=== PATIENT | male | born 1980 | race Caucasian/White ===

== ENCOUNTER 2016-07-02 12:36 | Emergency (ER) | payer SELFPAY ==
[2016-07-02] MEDS ORDERED: SODIUM CHLORIDE 0.9% 1,000 ML IV STA (12:58)
[2016-07-02] MEDS ORDERED: ONDANSETRON 4 MG/2 ML VIAL IVP STA (12:58)
[2016-07-02] MEDS ORDERED: HYDROmorphone 1 MG/ML 1 ML SYRINGE IVP STA (12:58)
[2016-07-02] MEDS ORDERED: FAMOTIDINE 20 MG/2 ML VIAL IV STA (12:58)
--- NOTE | 2016-07-02 13:01 | ED ---
General Adult HPI - General Chief complaint: Abdominal Pain Stated complaint: Abd Pain Time Seen by Provider: 07/02/16 12:51 Source: patient, RN notes reviewed Mode of arrival: ambulatory Limitations: no limitations - History of Present Illness Initial comments: Patient 35-year-old male who presents emergency room today with a chief complaint of abdominal pain that began last night. Does admit to pain in epigastric right upper quadrants. Patient does admit feeling nauseated with one episode of vomiting. Patient denies any other complaints associated symptoms. Patient denies any recent fever, chills, shortness of breath, chest pain, back pain, numbness or tingling, dysuria or hematuria, constipation or diarrhea, headaches or visual changes, or any other complaints. - Related Data Previous Rx's Medication Instructions Recorded Cephalexin [Keflex] 500 mg PO Q8HR #21 cap 03/14/16 HYDROcodone/APAP 5-325MG [[place] 1 tab PO Q6HR PRN #12 tab 03/14/16 5-325] Ibuprofen [Motrin] 800 mg PO Q8HR PRN #21 tab 03/14/16 Ondansetron HCl [Zofran] 4 mg PO Q8HR PRN #12 tab 03/14/16 Loperamide [Imodium] 2 mg PO DIRECTED #20 capsule 07/02/16 Ondansetron Odt [Zofran ODT] 4 mg PO Q8HR PRN #20 tab 07/02/16 Allergies Allergy/AdvReac Type Severity Reaction Status Date / Time No Known Allergies Allergy Verified 03/14/16 20:55 Review of Systems ROS Statement: Those systems with pertinent positive or pertinent negative responses have been documented in the HPI. ROS Other: All systems not noted in ROS Statement are negative. Past Medical History Past Medical History: No Reported History History of Any Multi-Drug Resistant Organisms: None Reported Past Surgical History: No Surgical Hx Reported Additional Past Surgical History / Comment(s): hand surgery Past Psychological History: ADD/ADHD Smoking Status: Current every day smoker Past Alcohol Use History: Occasional Past Drug Use History: Marijuana General Exam - General Exam Comments Initial Comments: General: The patient is awake and alert, in no distress, and does not appear acutely ill. Eye: Pupils are equal, round and reactive to light, extra-ocular movements are intact. No nystagmus. There is normal conjunctiva bilaterally. No signs of icterus. Ears, nose, mouth and throat: There are moist mucous membranes and no oral lesions. Neck: The neck is supple, there is no tenderness or JVD. Cardiovascular: There is a regular rate and rhythm. No murmur, rub or gallop is appreciated. Respiratory: Lungs are clear to auscultation, respirations are non-labored, breath sounds are equal. No wheezes, stridor, rales, or rhonchi. Gastrointestinal: Normal exam. Normal bowel sounds. Abdomen soft on palpation. Patient does have tenderness in the right upper quadrant and epigastric. No rebound tenderness. No Guarding. No CVA tenderness. Musculoskeletal: Normal ROM, no tenderness. Strength 5/5. Sensation intact. Pulses equal bilaterally 2+. Neurological: A&O x 3. CN II-XII intact, There are no obvious motor or sensory deficits. Coordination appears grossly intact. Speech is normal. Skin: Skin is warm and dry and no rashes or lesions are noted. Psychiatric: Cooperative, appropriate mood & affect, normal judgment. Limitations: no limitations Course Vital Signs 07/02/16 12:38 Temperature 99.2 F Pulse Rate 75 Respiratory 20 Rate Blood Pressure 137/93 O2 Sat by Pulse 100 Oximetry Medical Decision Making - Medical Decision Making Patient labs reviewed and are unremarkable. Unable to obtain urine sample here. Patient states he has no difficulties urinating. States that kidney stone in the past does not feel like that. He does admit to some diarrhea over the last few days. Patient admits to nausea. X-ray unremarkable. Ultrasound shows no evidence of cholecystitis. No gallstones. Results were discussed with the patient. We discharged home with nausea medication advised to use Imodium for any diarrhea. Advised with family doctor return here to emergency room if any symptoms increase or worsen or for any concerns. - Lab Data Result diagrams: 07/02/16 13:05 07/02/16 13:05 Lab Results 07/02/16 07/02/16 Range/Units 13:05 13:05 WBC 7.7 (3.8-10.6) k/uL RBC 5.44 (4.30-5.90) m/uL Hgb 17.3 (13.0-17.5) gm/dL Hct 51.8 (39.0-53.0) % MCV 95.2 (80.0-100.0) fL MCH 31.9 (25.0-35.0) pg MCHC 33.5 (31.0-37.0) g/dL RDW 13.4 (11.5-15.5) % Plt Count 245 (150-450) k/uL Neutrophils % 82 % Lymphocytes % 10 % Monocytes % 5 % Eosinophils % 0 % Basophils % 0 % Neutrophils # 6.3 (1.3-7.7) k/uL Lymphocytes # 0.8 L (1.0-4.8) k/uL Monocytes # 0.4 (0-1.0) k/uL Eosinophils # 0.0 (0-0.7) k/uL Basophils # 0.0 (0-0.2) k/uL Sodium 144 (137-145) mmol/L Potassium 3.9 (3.5-5.1) mmol/L Chloride 104 (98-107) mmol/L Carbon Dioxide 27 (22-30) mmol/L Anion Gap 13 mmol/L BUN 16 (9-20) mg/dL Creatinine 0.82 (0.66-1.25) mg/dL Est GFR (MDRD) Af Amer >60 (>60 ml/min/1.73 sqM) Est GFR (MDRD) Non-Af >60 (>60 ml/min/1.73 sqM) Glucose 123 H (74-99) mg/dL Calcium 10.0 (8.4-10.2) mg/dL Total Bilirubin 0.6 (0.2-1.3) mg/dL AST 25 (17-59) U/L ALT 28 (21-72) U/L Alkaline Phosphatase 63 (38-126) U/L Total Protein 7.8 (6.3-8.2) g/dL Albumin 4.7 (3.5-5.0) g/dL Amylase 79 (30-110) U/L Lipase 105 (23-300) U/L Disposition Clinical Impression: Nausea vomiting and diarrhea Disposition: HOME SELF-CARE Condition: Good Instructions: Gastroenteritis (ED) Additional Instructions: Please use medication as discussed. Please follow-up with family doctor in the next 2 days of symptoms have not improved. Please return to emergency room if the symptoms increase or worsen or for any other concerns. Prescriptions: Loperamide [Imodium] 2 mg PO DIRECTED #20 capsule Ondansetron Odt [Zofran ODT] 4 mg PO Q8HR PRN #20 tab PRN Reason: Nausea Referrals: None,Stated [Primary Care Provider] - 1-2 days Sami Grey MD [REFERRING] - 1-2 days Time of Disposition: 14:22
[2016-07-02 13:25] LABS: Basophils % (A) 0 %; CH 33.3; CHCM 35.1; Eosinophils % (A) 0 %; HCT 51.8 % (39.0-53.0); HDW 2.67; HGB 17.3 gm/dL (13.0-17.5); Luc # (Auto) 0.17; Luc % (Auto) 2; Lymphocytes # (A) 0.8 k/uL (1.0-4.8); Lymphocytes % (A) 10 %; MCH 31.9 pg (25.0-35.0); MCHC 33.5 g/dL (31.0-37.0); MCV 95.2 fL (80.0-100.0); Mean Platelet Volume 6.9; Monocytes # (A) 0.4 k/uL (0-1.0); Monocytes % (A) 5 %; Neutrophils # (A) 6.3 k/uL (1.3-7.7); Neutrophils % (A) 82 %; RBC 5.44 m/uL (4.30-5.90); RDW 13.4 % (11.5-15.5); WBC 7.7 k/uL (3.8-10.6); WBC (Perox) 7.98
--- NOTE | 2016-07-02 13:27 | XR ---
EXAMINATION TYPE: XR KUB DATE OF EXAM: 07/02/2016 1:22 PM COMPARISON: NONE INDICATION: Abdomen pain TECHNIQUE: Single view abdomen FINDINGS: There is a normal bowel gas pattern. Psoas margins are normal. No organomegaly is present. IMPRESSION: 1. Unremarkable Abdomen
[2016-07-02 13:37] LABS: ALT 28 U/L (21-72); AST 25 U/L (17-59); Alkaline Phosphatase 63 U/L (38-126); Amylase 79 U/L (30-110); Anion Gap 13 mmol/L; Blood Urea Nitrogen 16 mg/dL (9-20); Carbon Dioxide 27 mmol/L (22-30); Chloride 104 mmol/L (98-107); Glucose 123 mg/dL (74-99); Non-African American GFR(MDRD) >60 (>60 ml/min/1.73 sqM); Potassium 3.9 mmol/L (3.5-5.1); Sodium 144 mmol/L (137-145); Total Bilirubin 0.6 mg/dL (0.2-1.3); Total Protein 7.8 g/dL (6.3-8.2)
--- NOTE | 2016-07-02 14:08 | US ---
EXAMINATION TYPE: US abdomen limited DATE OF EXAM: 07/02/2016 1:51 PM COMPARISON: NONE CLINICAL HISTORY: Pain. EXAM MEASUREMENTS: Liver Length: 16.6 cm Gallbladder Wall: 0.3 cm CBD: 0.3 cm Right Kidney: 10.5 x 4.2 x 4.6 cm TECHNOLOGIST IMPRESSION: Limited due to patient moving and unable to hold breath well due to pain du ring examination. Pancreas: Obscured by bowel gas, portions visualized appear wnl Liver: wnl Gallbladder: wnl Evidence for sonographic Garza's sign: No, entire RUQ is tender CBD: wnl Right Kidney: wnl IMPRESSION: 1. Normal right upper quadrant abdomen ultrasound
[2016-07-02 14:24] VITALS: BP 112/73; PULSE 70; RESP 16; TEMP 98
== END 2016-07-02 14:36 | disposition home or self-care (01) ==
LOC: EC 12:36
DX: K52.9 Noninfective gastroenteritis and colitis, unspecified (principal); F17.200 Nicotine dependence, unspecified, uncomplicated
CPT/HCPCS: 99284; 96374; 96375 ×2; 96361; 36415; 80053; 82150; 83690; 85025; 74000; 76705; J2405; J1170

== ENCOUNTER 2017-07-20 11:15 | Emergency (ER) | payer OTHER ==
[2017-07-20] MEDS ORDERED: ACETAMINOPHEN TAB 500 MG TAB PO STA (11:57)
[2017-07-20] MEDS ORDERED: IBUPROFEN 600 MG TAB PO STA (11:57)
--- NOTE | 2017-07-20 12:17 | ED ---
General Adult HPI - General Chief complaint: Fever Stated complaint: exposed to mennengitis, headache and spine pain Time Seen by Provider: 07/20/17 11:47 Source: patient, RN notes reviewed Mode of arrival: ambulatory Limitations: no limitations - History of Present Illness Initial comments: 36-year-old male presents for cough and body aches and fever. He states he's been sick for the last day or so. Patient states she is having some sputum production with the cough. He denies any nausea vomiting. He states that he is concerned because this child was sick over the weekend in the hospital for possible meningitis and now he is getting ill. Patient denies any recent shortness of breath, chest pain, back pain, abdominal pain, nausea vomiting, numbness or tingling, dysuria or hematuria, constipation or diarrhea, headaches or visual changes, or any other current symptoms. - Related Data Previous Rx's Medication Instructions Recorded Oseltamivir [Tamiflu] 75 mg PO Q12HR #10 cap 07/20/17 Allergies Allergy/AdvReac Type Severity Reaction Status Date / Time No Known Allergies Allergy Verified 07/20/17 12:03 Review of Systems ROS Statement: Those systems with pertinent positive or pertinent negative responses have been documented in the HPI. ROS Other: All systems not noted in ROS Statement are negative. Past Medical History Past Medical History: No Reported History History of Any Multi-Drug Resistant Organisms: None Reported Past Surgical History: No Surgical Hx Reported Additional Past Surgical History / Comment(s): hand surgery Past Psychological History: ADD/ADHD Smoking Status: Current every day smoker Past Alcohol Use History: Occasional Past Drug Use History: Marijuana General Exam - General Exam Comments Initial Comments: General exam: Alert, active, comfortable in no apparent distress Head: Normocephalic Eyes: Normal reaction of pupils, equal size, normal range of extraocular motion Ears: normal external ear canals, pink tympanic membranes with normal cone of light Nose: clear with pink turbinates Throat: no erythema or exudates with normal sized tonsils Neck: no masses, no nuchal rigidity Chest: no chest wall deformity Lungs: equal air entry with no crackles or wheeze CVS: S1 and S2 normal with no audible mumurs, regular rhythm Abdomen: no hepatosplenomegaly, normal bowel sounds, no guarding or rigidity Spine: no scoliosis or deformity Skin: no rashes Neurological: No focal deficits, tone is normal in all 4 extremities Limitations: no limitations Course Vital Signs 07/20/17 07/20/17 07/20/17 11:32 11:47 12:32 Temperature 100.8 F H Pulse Rate 106 H 92 Respiratory 18 19 19 Rate Blood Pressure 105/79 110/57 O2 Sat by Pulse 96 98 Oximetry Medical Decision Making - Medical Decision Making 36-year-old male presents for fever. At this time patient is flu B+. We discussed at this time patient's symptoms are more consistent with this finding. We discussed continuing Motrin and Tylenol for fever control. We'll give him prescription for Tamiflu. We discussed return parameters and follow- up and all questions. Patient stated that he understood and he is agreement this plan. At this time the patient will be discharged. - Lab Data Lab Results 07/20/17 Range/Units 12:29 Influenza Type A RNA Not Detected (Not Detectd) Influenza Type B (PCR) Detected H (Not Detectd) - Radiology Data Radiology results: report reviewed, image reviewed Disposition Clinical Impression: Influenza B Disposition: HOME SELF-CARE Condition: Stable Instructions: Fever in Adults (ED), Influenza (ED) Additional Instructions: Please use medication as discussed. Please follow up with family doctor if symptoms have not improved over the next two days. Please return to the emergency room if your symptoms increase or worsen or for any other concerns. Prescriptions: Oseltamivir [Tamiflu] 75 mg PO Q12HR #10 cap Referrals: Micaela Reardon MD [REFERRING] - 1-2 days Time of Disposition: 13:04
--- NOTE | 2017-07-20 12:20 | XR ---
EXAMINATION TYPE: XR chest 2V DATE OF EXAM: 07/20/2017 COMPARISON: NONE HISTORY: Cough TECHNIQUE: Frontal and lateral views of the chest are obtained. FINDINGS: There is no focal air space opacity, pleural effusion, or pneumothorax seen. The cardiac silhouette size is within normal limits. There is bronchial wall thickening present. The osseous str uctures are intact. IMPRESSION: Correlate for bronchitis, reactive airways disease. Follow-up as indicated.
[2017-07-20 13:31] VITALS: BP 103/54; PULSE 84; RESP 16; TEMP 98.6
== END 2017-07-20 13:27 | disposition home or self-care (01) ==
LOC: EC 11:15
DX: J10.1 Influenza due to other identified influenza virus with other respiratory manifestations (principal); F17.200 Nicotine dependence, unspecified, uncomplicated
CPT/HCPCS: 71046; 87502; 99284

== ENCOUNTER 2019-06-14 14:01 | Emergency (ER) | payer OTHER ==
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
[2019-06-14] MEDS ORDERED: LIDOCAINE 1% INJ 10MG/ML (20 ML MDV) SQ ONE (14:32)
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
[2019-06-14 15:41] VITALS: BP 128/87; PULSE 82; RESP 16; TEMP 98.1
== END 2019-06-14 15:38 | disposition home or self-care (01) ==
LOC: EC 14:01
DX: S01.511A Laceration without foreign body of lip, initial encounter (principal); S01.21XA Laceration without foreign body of nose, initial encounter; S70.312A Abrasion, left thigh, initial encounter; M25.552 Pain in left hip; F17.200 Nicotine dependence, unspecified, uncomplicated; V59.40XA Driver of pick-up truck or van injured in collision with unspecified motor vehicles in traffic accident, initial encounter; Y93.89 Activity, other specified; Y92.410 Unspecified street and highway as the place of occurrence of the external cause
CPT/HCPCS: 72170; 73552; 71046; 70486; 99285; 12013; J2001

== ENCOUNTER 2024-05-01 15:36 | Emergency (ER) | payer OTHER ==
[2024-05-01 16:06] VITALS: TEMP 97.7
--- NOTE | 2024-05-01 16:18 | ED ---
Eye Problem HPI - General Chief complaint: Eye Problems Stated complaint: Foreign obj. in ear Time Seen by Provider: 05/01/24 16:17 Source: patient, RN notes reviewed Mode of arrival: ambulatory Limitations: no limitations - History of Present Illness Initial comments: Patient is a 43-year-old male presented the ER for evaluation of left eye foreign body. Patient states yesterday he was cutting wood and believes he has a piece in his left eye. Tetanus is up-to-date. He denies any double blurry vision. He has tried flushing his eyes with water and Visine without relief. He denies any other complaints at this time. - Related Data Previous Rx's Medication Instructions Recorded Oseltamivir [Tamiflu] 75 mg PO Q12HR #10 cap 07/20/17 Allergies Allergy/AdvReac Type Severity Reaction Status Date / Time No Known Allergies Allergy Verified 07/20/17 12:03 Review of Systems ROS Statement: Those systems with pertinent positive or pertinent negative responses have been documented in the HPI. ROS Other: All systems not noted in ROS Statement are negative. Past Medical History Past Medical History: No Reported History History of Any Multi-Drug Resistant Organisms: None Reported Past Surgical History: No Surgical Hx Reported Additional Past Surgical History / Comment(s): hand surgery Past Psychological History: ADD/ADHD Smoking Status: Current every day smoker Past Alcohol Use History: Rare Past Drug Use History: Marijuana General Exam Limitations: no limitations General appearance: alert, in no apparent distress Eye exam: Present: PERRL, EOMI, conjunctival injection (Left), other (No foreign body, corneal abrasion, or hyphema noted) Pupils: Present: normal accommodation, other (Fluorescein stain negative for acute uptake. Negative Sidel's sign. ) Respiratory exam: Present: normal lung sounds bilaterally. Absent: respiratory distress, wheezes, rales, rhonchi, stridor Cardiovascular Exam: Present: regular rate, normal rhythm, normal heart sounds. Absent: systolic murmur, diastolic murmur, rubs, gallop, clicks Course Vital Signs 05/01/24 05/01/24 15:57 17:34 Temperature 97.7 F 97.7 F Pulse Rate 78 73 Respiratory 15 16 Rate Blood Pressure 149/93 134/86 O2 Sat by Pulse 98 99 Oximetry Medical Decision Making - Medical Decision Making Was pt. sent in by a medical professional or institution (JAKE Vaughn, DIRECTOR MEDIA, urgent care, hospital, or fci...) When possible be specific @ -No Did you speak to anyone other than the patient for history (EMS, parent, family, police, friend...)? What history was obtained from this source @ -No Did you review nursing and triage notes (agree or disagree)? Why? @ -I reviewed and agree with nursing and triage notes Were old charts reviewed (outside hosp., previous admission, EMS record, old EKG, old radiological studies, urgent care reports/EKG's, fci records)? Report findings @ -No old charts were reviewed Differential Diagnosis (chest pain, altered mental status, abdominal pain women, abdominal pain men, vaginal bleeding, weakness, fever, dyspnea, syncope, headache, dizziness, GI bleed, back pain, seizure, CVA, palpatations, mental health, musculoskeletal)? @ -Corneal abrasion, ocular foreign body, hyphema, conjunctivitis, globe rupture, acute angle-closure glaucoma this list is not meant to be all-inclusive EKG interpreted by me (3pts min.). @ -None done X-rays interpreted by me (1pt min.). @ -None done CT interpreted by me (1pt min.). @ -None done U/S interpreted by me (1pt. min.). @ -None done What testing was considered but not performed or refused? (CT, X-rays, U/S, labs)? Why? @ -None What meds were considered but not given or refused? Why? @ -None Did you discuss the management of the patient with other professionals (professionals i.e. JAKE Vaughn, DIRECTOR MEDIA, lab, RT, psych nurse, social media strategist, rn digestive, teacher, finance officer, child welfare caseworker)? Give summary @ -No Was smoking cessation discussed for >3mins.? @ -No Was critical care preformed (if so, how long)? @ -No Were there social determinants of health that impacted care today? How? (Homelessness, low income, unemployed, alcoholism, drug addiction, transportation, low edu. Level, literacy, decrease access to med. care, assisted, rehab)? @ -No Was there de-escalation of care discussed even if they declined (Discuss DNR or withdrawal of care, Hospice)? DNR status @ -No What co-morbidities impacted this encounter? (DM, HTN, Smoking, COPD, CAD, Cancer, CVA, ARF, Chemo, Hep., AIDS, mental health diagnosis, sleep apnea, morbid obesity)? @ -None Was patient admitted / discharged? Hospital course, mention meds given and route, prescriptions, significant lab abnormalities, going to OR and other pertinent info. @ -Discharged. 43-year-old male presented the ER for evaluation of possible ocular foreign body. History and physical exam completed. Vitals within normal limits. Fluorescein stain of left eye negative for acute uptake. Lid eversion negative for foreign body. Negative sidels sign. Pupils are equal round reactive with intact extraocular motions. IOP OS 25. Eye flushed with saline flushes. Patient reported improvement of discomfort after irrigation. Patient's tetanus is up-to-date. Patient will be started on Tobrex for infection prophylaxis. Dosing instructions reviewed and discussed with patient. Patient is stable for discharge and outpatient follow-up with ophthalmology, referral given. Strict return parameters discussed. Patient discharged in stable condition with follow-up to PCP. Patient verbally expressed understanding and agreement with care plan. Case discussed with ED attending, Dr. Gillette. Undiagnosed new problem with uncertain prognosis? @ -No Drug Therapy requiring intensive monitoring for toxicity (Heparin, Nitro, Insulin, Cardizem)? @ -No Were any procedures done? @ -No Diagnosis/symptom? @ -Foreign body sensation in eye Acute, or Chronic, or Acute on Chronic? @ -Acute Uncomplicated (without systemic symptoms) or Complicated (systemic symptoms)? @ -Uncomplicated Side effects of treatment? @ -No Exacerbation, Progression, or Severe Exacerbation? @ -No Poses a threat to life or bodily function? How? (Chest pain, [place], [place], pneumonia, PE, COPD, DKA, ARF, appy, cholecystitis, CVA, Diverticulitis, Homicidal, Suicidal, threat to staff... and all critical care pts) @ -No Disposition Clinical Impression: Foreign body sensation, left eye Disposition: HOME SELF-CARE Condition: Stable Instructions (If sedation given, give patient instructions): Eye Foreign Body (ED) Additional Instructions: Use Tobrex eyedrops 2 drops in left eye 4 times daily for 5 days. Follow-up closely with PCP and ophthalmology if symptoms persist. Return to the ER for any new or worsening concerns. Is patient prescribed a controlled substance at d/c from ED?: No Referrals: None,Stated [Primary Care Provider] - 1-2 days Marques Renner MD [STAFF PHYSICIAN] - 1-2 days Forms: PH Area PCPs Time of Disposition: 17:18
[2024-05-01] MEDS: FLUORESCEIN STRIPS 1 MG STRIP RIGHT EYE ONE (16:33)
[2024-05-01] MEDS: PROPARACAINE 0.5% OPHTH DROPS 15 ML BTL LEFT EYE STA (16:33)
[2024-05-01] MEDS: TOBRAMYCIN 0.3% OPHTH DROPS 5 ML BTL LEFT EYE STA (17:33)
[2024-05-01 17:35] VITALS: BP 134/86; PULSE 73; RESP 16
== END 2024-05-01 17:35 | disposition home or self-care (01) ==
LOC: EC 15:36
DX: H57.8A2 Foreign body sensation, left eye (principal); F17.200 Nicotine dependence, unspecified, uncomplicated; W44.9XXA Unspecified foreign body entering into or through a natural orifice, initial encounter
CPT/HCPCS: 99283